=== PATIENT | female | born 1955 | race Caucasian/White ===

== ENCOUNTER → 2017-08-18 | Outpatient (CLI) | payer OTHER | LOC: LAB SHORT 14:34 | DX: R07.0 Pain in throat (principal) | CPT/HCPCS: 87070 ==

== ENCOUNTER 2020-03-03 10:51 | Day surgery (SDC) | payer OTHER ==
[~2020-03-03] VITALS: Ht 170.2 cm; Wt 98.7 kg
[~2020-03-03 10:51] MED LIST: ACET325 PO; ASPI325EC PO; IBUP200 PO; NAPROXEN CR500 MG PO; [UNRECOGNIZED DRUG - OTHER] TOP
--- NOTE | 2020-03-03 12:58 | NUR ---
History, Chart, Medications and Allergies reviewed before start of procedure. Patient confirms NPO status and agrees with scheduled surgery. Patient reports completing Chlorhexadine shower X2 prior to admission to hospital.
--- NOTE | 2020-03-03 12:59 | NUR ---
Lungs clear T/O to Auscultation.
--- NOTE | 2020-03-03 15:34 | NUR ---
OCTAVIO X3 AMPULES TO DARIEL FRANCO PER DR DUKES.
--- NOTE | 2020-03-03 16:32 | NUR ---
1630- TIME OUT FOR SPINAL ANESTHESIA BY DR WRIGHT AT [facility] BEDSIDE. 2L O2/NC INTACT. 1632- SPINAL ANESTHESIA COMPLETE. PULSE OX INTACT. DR WRIGHT STAYING AT BEDSIDE TO MONITOR PATIENT.
--- NOTE | 2020-03-03 21:59 | NUR ---
PATIENT ARRIVED @1935 TO ROOM 222. PATIENT IS AWAKE AND AWARE, MOTHER IS PRESENT WITH PATIENT. VITAL SIGNS ARE STABLE, HR HAS BEEN 48 IN PACU AND IS STILL 48. nO CURRENT COMPLAINTS OF PAIN. PT HAD A SPINAL AND INITIALLY HAD FEELING TO L1-L2. sHE CURRENTLY HAS FULL FEELING OVER ALL DREMATOMES AND IS ABLE TO MOVE BOTH LEGS AND CAN DISERN PRESSURE AND LIGHT TOUCH ON BOTH LEGS ANT AND POST. PAS AND MAYRA HOSE ON BOTH LEs. PATIENT HAS BEEN RESTING WELL AND CURRENTLY HAS 1/10 PAIN IN HER LT HIP. CALL LIGHT IN REACH. ABLE TO START WITH CLEAR LIQUIDS AND DID WELL WITH THAT.
--- NOTE | 2020-03-04 05:24 | NUR ---
SHIFT SUMMARY PATIENT HAS HAD GOOD PAIN CONTROL WITH SCHEDULED MEDICATIONS. SHE WAS UP TO BR WITH ASSISTANCE AND WALKER 3 TIMES AND DID VERY WELL. SHE STATES THAT HER PAIN NOW IS MUCH BETTER WITH THE NEW HIP. HER DRESSINGS ON RT AND LT ANT HIPS ARE CLEAN AND DRY. SHE HAS A SLIGHT BRUISING ON THE LT HIP LATERAL ASPECT OF THE DRESSING. SHE IS CURRENTLY UP IN THE CHAIR WITH POLAR PACK ON LT HIP. SHE IS ANTICIPATING DISCHARGE AND IS CHANGED INTO HER OWN CLOTHS. NO OTHER CHANGES.
[2020-03-04 05:38] LABS: BASOPHILS ABSOLUTE AUTO 0.01 K/mm3 (0.00-0.23); BASOPHILS PERCENT AUTO 0 % (0-2); EOSINOPHILS PERCENT AUTO 0 % (0-6); Hematocrit 34.5 % (33.0-51.0); Hemoglobin 11.4 g/dL (11.5-16.0); IMMATURE GRAN ABSOLUTE AUTO 0.05 K/mm3 (0.00-0.10); IMMATURE GRAN PERCENT AUTO 1 % (0-1); LYMPHOCYTES ABSOLUTE AUTO 0.72 K/mm3 (0.84-5.20); LYMPHOCYTES PERCENT AUTO 7 % (21-46); MONOCYTES ABSOLUTE AUTO 0.24 K/mm3 (0.16-1.47); MONOCYTES PERCENT AUTO 2 % (4-13); Mean Corpuscular HGB 28.9 pg (26.0-34.0); Mean Corpuscular Volume 88 fL (80-100); Mean Platelet Volume 10.2 fL (9.1-12.4); NEUTROPHILS ABSOLUTE AUTO 8.96 K/mm3 (1.96-9.15); NEUTROPHILS PERCENT AUTO 90 % (41-73); Platelet Count 202 K/mm3 (150-400); RDW Coefficient Variation 11.7 % (11.7-14.2); RDW Standard Deviation 37.6 fL (35.1-46.3); Red Blood Cell Count 3.94 M/mm3 (3.80-5.20); White Blood Cell Count 9.98 K/mm3 (4.00-11.30)
[2020-03-04 06:01] LABS: Anion Gap 4 mmol/L (6-16); Blood Urea Nitrogen 15 mg/dL (8-24); Bun/Creatinine Ratio 23.5 (12.0-20.0); CO2, Blood 27 mmol/L (21-32); Calcium, Blood 8.8 mg/dL (8.5-10.1); Chloride, Blood 108 mmol/L (98-108); Creatinine, Blood 0.64 mg/dL (0.40-1.00); Glomerular Filtration Rate >60 (60-); Glucose, Blood 137 mg/dL (70-99); Potassium, Blood 4.3 mmol/L (3.5-5.5); Sodium, Blood 139 mmol/L (136-145)
[2020-03-04] MEDS ORDERED: XARELTO10 MG PO (09:33)
--- NOTE | 2020-03-04 12:47 | NUR ---
DISCHARGE PT GIVEN WRITTEN AND VERBAL DISCHARGE INSTRUCTIONS AND VERBALIZED UNDERSTANDING OF THESE INSTRUCTIONS. IV REMOVED, PT TOLERATED WELL. PT WILL CALL FOR ASSISTANCE TO CAR WHEN HER RIDE ARRIVES.
--- NOTE | 2020-03-05 13:19 | NUR ---
03/05/20 1319 Arlette Strong VERIFICATIONS: EDIT CHART.
== END 2020-03-04 13:58 | disposition home or self-care (01) ==
LOC: ORSCMMR 10:51 → ORD 12:45 → ORSCMMR 12:45 → ORD 13:30 → SURS 19:43 → ORSCMMR 03-04 13:58
PROVIDERS: Orthopaedic Surgery
PROC: 0SRB0JA Replacement of Left Hip Joint with Synthetic Substitute, Uncemented, Open Approach (ICD-10-PCS; principal; 2020-03-03 12:45)
DX: M16.12 Unilateral primary osteoarthritis, left hip (principal); E66.9 Obesity, unspecified; Z68.34 Body mass index [BMI] 34.0-34.9, adult
CPT/HCPCS: 36415; 72170; 80048; 85025; 88300; 97110; 97116; 97161; C1776; J0171; J0690; J0735; J1100; J1885; J2250; J2405; J2704; J2795; J3010; J7120

== ENCOUNTER → 2021-07-22 | Outpatient (CLI) | payer OTHER ==
[~2021-07-22] MED LIST changes: +XARELTO10 MG PO
[2021-07-23 16:10] LABS: HPV 16 Negative (Negative); HPV 18 Negative (Negative); HPV OTHER HR TYPES Negative (Negative)
== END ==
LOC: LAB SHORT 18:28 → LAB 18:28
PROVIDERS: Family Medicine
DX: Z01.419 Encounter for gynecological examination (general) (routine) without abnormal findings (principal)
CPT/HCPCS: 87624; G0123

== ENCOUNTER 2022-08-03 06:54 | Day surgery (SDC) | payer MEDICARE, OTHER ==
[~2022-08-03] VITALS: Ht 170.2 cm; Wt 99.5 kg
== END 2022-08-03 09:07 | disposition home or self-care (01) ==
LOC: ORSCSDS 06:54
PROVIDERS: Internal Medicine Gastroenterology
PROC: 0DJD8ZZ Inspection of Lower Intestinal Tract, Via Natural or Artificial Opening Endoscopic (ICD-10-PCS; principal; 2022-08-03 08:00)
DX: R19.5 Other fecal abnormalities (principal); K64.8 Other hemorrhoids; K57.30 Diverticulosis of large intestine without perforation or abscess without bleeding; Z86.010 Personal history of colon polyps; E66.9 Obesity, unspecified; Z68.34 Body mass index [BMI] 34.0-34.9, adult
CPT/HCPCS: J2704; J7120

== ENCOUNTER → 2022-12-13 | Outpatient (CLI) | payer MEDICARE, OTHER ==
[~2022-12-13] MED LIST changes: +IBUP600 PO
== END | disposition home or self-care (01) ==
LOC: LAB SHORT 16:17 → LAB 16:17
DX: N39.0 Urinary tract infection, site not specified (principal)
CPT/HCPCS: 87077; 87086; 87186

== ENCOUNTER 2022-12-27 07:58 | Day surgery (SDC) | payer MEDICARE, OTHER ==
[~2022-12-27] VITALS: Ht 170.2 cm; Wt 100.1 kg
[2022-12-27] VITALS (14 sets, daily range): BP systolic 103–148; BP diastolic 57–77
--- NOTE | 2022-12-27 09:09 | NUR ---
History, Chart, Medications and Allergies reviewed before start of procedure. Lungs clear T/O to Auscultation. Patient confirms NPO status and agrees with scheduled surgery. Pre-Op teaching done. Pt verbalizes understanding. Patient reports completing Chlorhexadine shower X2 prior to admission to hospital.
--- NOTE | 2022-12-27 17:46 | NUR ---
SHIFT SUMMARY NEW ADMIT TO UNIT FROM PACU POD 0 R ECHO. ALERT AND ORIENTED. SPINAL IN EFFECT FOR SEVERAL HOURS. LATE IN AFTERNOON PT WORKED WITH PATIENT. AMBULATED IN ROOM WITH FWW AND GB, UP TO RECLINER. RIGHT HIP WITH AQUACEL C/D/I. POLAR PACK IN PLACE. TOLERATING REGULAR DIET AND LIQUIDS. SALINE LOCKED. ONE EPISODE OF NAUSEA AND VOMITING, PASSED QUICKLY AND DECLINED ANTI-NAUSEA MEDICINE. NO VOID AT THIS TIME, WILL CONTINUE TO MONITOR WITH BS AND CATH NEEDED.
--- NOTE | 2022-12-27 18:39 | NUR ---
"Spiritual Care | Patient Request Pt. is awake in bed and welcomes my visit. Pts. mother is present. Pt. is very pleasant and identifies as a practicing Islam. Matters of rosana, belief as it intersects with the Pts. life review are considered. Rapport is established and I prayed with the women. Pt. displayed evidence of an uplifted spirit. Both verbalized gratitude for the spiritual care visit."
[2022-12-27] MEDS ORDERED: OXYC5 PO (19:50)
[2022-12-28 03:51] VITALS: BP 112/54
--- NOTE | 2022-12-28 04:19 | NUR ---
SHIFT SUMMARY POD1 RIGHT ECHO. AQUACEL IS C/D/I. CIRCULATION AND SENSATION IS INTACT. VSS. PT SLEPT WELL T/O THE NIGHT. MEDICATED WITH PRNS FOR PAIN AND ONCE WITH OXY. PT HAS BEEN AMBULATING, TOLLERATING PO INTAKE, AND VOIDING W/O DIFFICULTY. NO ACUTE EVENTS T/O THE NIGHT. NO ACUTE EVENTS NOTED. PLAN FOR PT TO WORK WITH PT AND D/C HOME TODAY. THE PATIENT IS CURRENTLY SLEEPING, IN NO DISTRESS, CALL LIGHT IN REACH
[2022-12-28 04:48] LABS: BASOPHILS ABSOLUTE AUTO 0.01 K/mm3 (0.00-0.23); BASOPHILS PERCENT AUTO 0 % (0-2); EOSINOPHILS ABSOLUTE AUTO 0.02 K/mm3 (0.00-0.68); EOSINOPHILS PERCENT AUTO 0 % (0-6); Hematocrit 32.2 % (33.0-51.0); Hemoglobin 10.9 g/dL (11.5-16.0); IMMATURE GRAN ABSOLUTE AUTO 0.02 K/mm3 (0.00-0.10); IMMATURE GRAN PERCENT AUTO 0 % (0-1); LYMPHOCYTES PERCENT AUTO 19 % (21-46); MONOCYTES ABSOLUTE AUTO 0.47 K/mm3 (0.16-1.47); MONOCYTES PERCENT AUTO 6 % (4-13); Mean Corpuscular HGB 29.1 pg (26.0-34.0); Mean Corpuscular HGB Conc 33.9 g/dL (31.5-36.5); Mean Corpuscular Volume 86 fL (80-100); NEUTROPHILS ABSOLUTE AUTO 5.64 K/mm3 (1.96-9.15); NEUTROPHILS PERCENT AUTO 75 % (41-73); Platelet Count 177 K/mm3 (150-400); RDW Coefficient Variation 12.8 % (11.7-14.2); RDW Standard Deviation 39.8 fL (35.1-46.3); Red Blood Cell Count 3.74 M/mm3 (3.80-5.20); White Blood Cell Count 7.56 K/mm3 (4.00-11.30)
[2022-12-28 05:12] LABS: Bun/Creatinine Ratio 27.1 (12.0-20.0); Calcium, Blood 8.3 mg/dL (8.5-10.1); Creatinine, Blood 0.66 mg/dL (0.40-1.00); Potassium, Blood 3.8 mmol/L (3.5-5.5)
[2022-12-28 07:39] VITALS: BP 127/63
[2022-12-28] MEDS ORDERED: XARELTO20 MG PO ×2 (08:56→09:17)
[2022-12-28] MEDS ORDERED: Percocet 5-3251 EACH PO (09:17)
--- NOTE | 2022-12-28 10:20 | NUR ---
DISCHARGE NOTE: PATIENT WAS EDUCATED ON DISCHARGE INSTRUCTIONS. SHE VERBALIZED UNDERSTANDING OF INSTRUCTIONS AND HAD NO FURTHER QUESTIONS AT THIS TIME. PAIN IS MANAGED WITH PO PAIN MEDICATIONS. HARD PERSCRIPTIONS ARE IN HER INSTRUCTIONS FOLDER. SHE HAS AN AQUACEL ON THE RIGHT HIP THAT IS C/D/I. DENIES NUMBNESS OR TINGLING. SHE IS A SBA WITH FWW AND GAIT BELT. PATIENT IS DRESSED AND HAS PERSONAL ITEMS IN THE ROOM GATHERED. SHE IS TOLERATING PO INTAKE AND IS VOIDING. AWAITING FOR HER RIDE TO COME PICK HER UP TO TAKE HER HOME.
--- NOTE | 2022-12-28 11:12 | NUR ---
PATIENT IS BEING WHEELCHAIRED OUT TO HER CAR.
== END 2022-12-28 11:14 | disposition home or self-care (01) ==
LOC: ORSCMMR 07:58 → ORD 09:15 → SURS 12:20 → ORSCMMR 12:20 → SURS 12-28 11:14 → ORSCMMR 12-28 11:14
PROVIDERS: Orthopaedic Surgery
PROC: 0SR90JZ Replacement of Right Hip Joint with Synthetic Substitute, Open Approach (ICD-10-PCS; principal; 2022-12-27 09:15)
DX: M16.11 Unilateral primary osteoarthritis, right hip (principal); Z96.642 Presence of left artificial hip joint; E66.9 Obesity, unspecified; Z68.34 Body mass index [BMI] 34.0-34.9, adult
CPT/HCPCS: 27130; 0055T; 36415; 72170; 80048; 85025; 97110; 97116; 97162; A9270; C1776; J0171; J0690; J0735; J1885; J2370; J2405; J2704; J2795; J3010; J7120